=== PATIENT | male | born 1995 | race Caucasian/White ===

== ENCOUNTER 2022-10-07 13:29 | Emergency (ER) | payer MEDICAID ==
[~2022-10-07] VITALS: Ht 162.6 cm; Wt 90.7 kg
[2022-10-07 13:30] VITALS: BP_SYST 137
== END 2022-10-07 14:06 | disposition left against medical advice (07) ==
LOC: SED 13:29
DX: F41.9 Anxiety disorder, unspecified (principal); Z53.21 Procedure and treatment not carried out due to patient leaving prior to being seen by health care provider
CPT/HCPCS: 99281

== ENCOUNTER 2022-10-30 16:15 | Emergency (ER) | payer MEDICAID ==
[~2022-10-30] VITALS: Ht 170.2 cm; Wt 72.6 kg
--- NOTE | 2022-10-30 16:30 | NUR ---
Patient to ER bed 6 to gown for evaluation. Side rails up. Report given to JOE SHULTZ.
[2022-10-30 16:33] VITALS: BP_SYST 127
--- NOTE | 2022-10-30 16:42 | NUR ---
URINE SAMPLE OBTAINED AND TAKEN TO LAB
--- NOTE | 2022-10-30 16:45 | NUR ---
PATIENT BIB MOTHER, C/O HEMATURIA W/ SUPRAPUBIC PAIN 3-4/10 SINCE THIS AFTERNOON. PATIENT ALSO C/O POSTERIOR HEAD PAIN 8/10, SUDDEN ONSET. NO BLURRED VISION. DENIES HISTORY OF DRUG USE, STATES HE HAD ONE BEER SHORTLY BEFORE SYMPTOMS BEGAN. NO MEDICAL OR SURGICAL HISTORY. NO MEDS, NKA. VSS. URINE SAMPLE OBTAINED AND SENT TO LAB.
[2022-10-30 16:59] LABS: BASOPHILS # (AUTO) 0.1 K/uL (0.0-0.2); BASOPHILS % (AUTO) 0.8 % (0.0-2.0); EOSINOPHILS # (AUTO) 0.2 K/uL (0.0-0.4); EOSINOPHILS % (AUTO) 1.2 % (0.0-4.0); HEMATOCRIT 46.5 % (36-54); HEMOGLOBIN 15.4 g/dL (14.0-18.0); LYMPHOCYTES % (AUTO) 15.3 % (20.5-51.5); MEAN CORPUSCULAR HEMOGLOBIN 30 pg (27-31); MEAN CORPUSCULAR HGB CONC 33 % (32-36); MEAN CORPUSCULAR VOLUME 89 fL (79.0-98.0); MONOCYTES % (AUTO) 7.5 % (1.7-9.3); NEUTROPHILS # (AUTO) 9.8 K/uL (1.8-7.7); NEUTROPHILS % (AUTO) 75.2 % (40.0-70.0); PLATELET COUNT (AUTO) 222 K/uL (130-430); RED BLOOD CELL COUNT(AUTO) 5.22 MIL/uL (4.2-6.2); RED CELL DISTRIBUTION WIDTH 13.6 % (9.0-15.0)
[2022-10-30 17:01] LABS: BILIRUBIN,URINE NEGATIVE (NEGATIVE); BLOOD, URINE 3+ (NEGATIVE); CLARITY/URINE SL CLOUDY (CLEAR); COLOR,URINE RED (YELLOW); GLUCOSE,URINE NEGATIVE (NEGATIVE); KETONES,URINE TRACE (NEGATIVE); LEUKOCYTE ESTERASE ,URINE 3+ (NEGATIVE); NITRITE, URINE NEGATIVE (NEGATIVE); PROTEIN URINE 2+ (NEGATIVE)
[2022-10-30 17:05] LABS: BACTERIA,URINE MODERATE /HPF (None Seen); MUCUS,URINE 1+ /LPF (None Seen); RBC,URINE >100 /HPF (0-3); WBC,URINE 80-100 /HPF (0-3)
[2022-10-30 17:12] LABS: ALBUMIN 3.6 g/dL (3.4-4.8); CALCIUM 8.6 mg/dL (8.4-11.0); CREATININE 0.87 mg/dL (0.55-1.30); TOTAL BILIRUBIN 0.5 mg/dL (0.0-1.0)
[2022-10-30] MEDS ORDERED: NITR-85 PO (17:45)
[2022-10-30] MEDS ORDERED: cefTRIAXone 1 GM in LIDOCAINE 1%, 20 ML MDV 2.1 ML IM ONE (17:45)
[2022-10-30] MEDS ORDERED: IBUP-1971 PO (17:45)
[2022-10-30] MEDS ORDERED: IBUPROFEN 800 MG TABLET PO ONE (18:15)
--- NOTE | 2022-10-30 18:39 | NUR ---
[employer] drawing specimen.
[2022-10-30 19:10] VITALS: BP_SYST 125
--- NOTE | 2022-10-30 19:15 | NUR ---
Patient given written and verbal discharge instructions and verbalizes understanding. ER MD discussed with patient the results and treatment provided. Patient in stable condition. ID arm band removed. Rx of MACROBID, MOTRIN given. Patient educated on pain management and to follow up with PMD. Pain Scale 4/10. Opportunity for questions provided and answered. Medication side effect fact sheet provided.
== END 2022-10-30 19:10 | disposition home or self-care (01) ==
LOC: SED 16:15
DX: N39.0 Urinary tract infection, site not specified (principal); Z79.899 Other long term (current) drug therapy
CPT/HCPCS: 99284; 74176; 86701; 86702; 80053; 81000; 85025; 86140; 87086; 36415; 76376; 80074; 83605; J0696; J2001